=== PATIENT | female | born 1960 | race American Indian/Alaskan Native ===

== ENCOUNTER 2017-10-06 11:04 | Inpatient (IN) | payer MEDICARE ==
[2017-10-06] MEDS ORDERED: Albuterol-Ipratrop 3 mg / 0.5 (3 ml) UD INH STA (11:51)
[2017-10-06] MEDS ORDERED: Albuterol-Ipratrop 3 mg / 0.5 (3 ml) UD ONE ×5 (12:00→21:11)
[2017-10-06] MEDS ORDERED: Magnesium Sulfate 1 gm in D5W 1 GM/100 ML BAG IVPB ONE ×2 (12:00→12:24)
[2017-10-06] MEDS: Magnesium Sulfate 1 gm in D5W 1 GM/100 ML BAG IVPB SCH ×2 (12:19→12:31)
[2017-10-06 12:21] LABS: BASO # 0.1 K/uL (0.0-0.2); BASO % 0.7 % (0.0-2.0); EOS % 0.4 % (0.0-4.0); HEMOGLOBIN 12.8 g/dL (11.0-16.0); LYMPH # 2.1 K/uL (1.0-4.3); LYMPH % 15.5 % (20.0-40.0); MEAN CORPUSCULAR HGB CONC 32.6 g/dL (33.0-37.0); MONO # 0.6 K/uL (0.0-0.8); MONO % 4.1 % (0.0-10.0); NEUT # 10.7 K/uL (1.8-7.0); NEUT % 79.3 % (50.0-75.0); RBC 4.94 Mil/uL (3.80-5.20); RED CELL DISTRIBUTION WIDTH 19.1 % (11.5-14.5); WHITE BLOOD COUNT 13.5 K/uL (4.8-10.8)
[2017-10-06 12:27] LABS: MEAN CELL VOLUME 79.9 fL (81.0-99.0)
[2017-10-06 12:37] LABS: ALB/GLOB RATIO 1.2 (1.0-2.1); ALBUMIN 3.9 g/dL (3.5-5.0); ALT/SGPT 18 U/L (9-52); AST/SGOT 23 U/L (14-36); BLOOD UREA NITROGEN 34 mg/dL (7-17); CALCIUM 8.6 mg/dl (8.6-10.4); GFR AFRICAN-AMERICAN > 60; GFR NON-AFRICAN AMERICAN 51
[2017-10-06 12:45] LABS: B-TYPE NATRIURETIC PEPTIDE 464 pg/mL (0-900)
--- NOTE | 2017-10-06 14:02 | RAD ---
Chest x-ray single frontal view History: Shortness of breath. Comparison: 08/12/2016 Findings: Moderate venous congestion with bibasilar airspace opacities and small bilateral pleural effusions. Cardiomegaly. Right hilar prominence. Degenerative changes in the spine and shoulders. Impression: Moderate venous congestion with bibasilar airspace opacities and small bilateral pleural effusions. Cardiomegaly. Right hilar prominence.
--- NOTE | 2017-10-06 14:21 | CP.PCM.HP ---
<LuzmariaViridiana - Last Filed: 10/07/17 07:10> History of Present Illness - History of Present Illness History of Present Illness: CC: COPD exacerbation Pt is a 57 y/o woman with a PMH of asthma, COPD, CHF, HTN, sleep apnea, AL (2003 ), hyperthyroidism, GERD and arthritis who presented to the ED due to 2-3 week history of worsening SOB and cough productive of yellow sputum. Her difficulty breathing has become so severe that she is unable to walk from her bedroom to her bathroom without becoming uncomfortable and out of breath. She reports that she has been taking her home medications as prescribed. She doesn't think her medications have been changed recently. She states that her grandson was sick recently ("had a cough") but that her current episode began before that. She was hospitalized at [facility] in early August for the same reason and states that this episode feels similar to the one prior. She endorses CP that comes on with coughing, headache, fatigue and congestion. She denies fevers, chills, palpitations, N/V/C/D, sinus pain and leg swelling. Pmhx: Asthma, COPD, CHF, HTN, AL ('), Hyperthyroidism, Sleep Apnea, GERD, Arthritis Pshx: Myomectomy and (1); hysterectomy Family hx: Mom has Diabetes and HTN and is still living. Dad had Diabetes, HTN and CKD () Social hx: Resumed smoking several months ago, after quiting for 6mo. 1/2PPD x 21yrs; Drinks beer on occasion; Denies substance use Allergies: Pt reports an IV antibiotic allergy; however, does no recall the name and previous records doesn't have information either PMD: Dr. Aileen Baig: Dr. Carreno Present on Admission - Present on Admission Any Indicators Present on Admission: No History of DVT/PE: No History of Uncontrolled Diabetes: No Urinary Catheter: No Decubitus Ulcer Present: No Past Patient History - Infectious Disease Hx of Infectious Diseases: None - Tetanus Immunizations Tetanus Immunization: Unknown - Past Medical History & Family History Past Medical History?: Yes - Past Social History Smoking Status: Heavy Smoker > 10 Cigarettes Daily - CARDIAC Hx Cardiac Disorders: Yes Hx Congestive Heart Failure: Yes Hx Heart Attack: Yes Hx Hypertension: Yes - PULMONARY Hx Respiratory Disorders: Yes Hx Chronic Obstructive Pulmonary Disease (COPD): Yes Hx Sleep Apnea: Yes - NEUROLOGICAL Hx Neurological Disorder: No - HEENT Hx HEENT Problems: No - RENAL Hx Chronic Kidney Disease: No - ENDOCRINE/METABOLIC Hx Endocrine Disorders: Yes Hx Hypothyroidism: Yes - HEMATOLOGICAL/ONCOLOGICAL Hx Blood Disorders: No - INTEGUMENTARY Hx Dermatological Problems: No - MUSCULOSKELETAL/RHEUMATOLOGICAL Hx Musculoskeletal Disorders: Yes Hx Arthritis: Yes - GASTROINTESTINAL Hx Crohn's Disease: Yes - GENITOURINARY/GYNECOLOGICAL Hx Genitourinary Disorders: No - PSYCHIATRIC Hx Substance Use: No - SURGICAL HISTORY Hx Surgeries: Yes Hx Cardiac Catheterization: Yes Hx Section: Yes - ANESTHESIA Hx Anesthesia: Yes Hx Anesthesia Reactions: No Hx Malignant Hyperthermia: No Meds Allergies/Adverse Reactions: Allergies Allergy/AdvReac Type Severity Reaction Status Date / Time iv antibiotic last admission. Allergy Uncoded 08/09/16 12:44 Results - Vital Signs Recent Vital Signs: Last Vital Signs Temp 98 F 10/06/17 11:18 Pulse 101 H 10/06/17 13:54 Resp 17 10/06/17 13:54 BP 156/88 H 10/06/17 13:54 Pulse Ox 97 10/06/17 13:54 - Labs Result Diagrams: 10/06/17 12:17 10/06/17 12:17 Labs: Laboratory Results - last 24 hr 10/06/17 10/06/17 10/06/17 11:50 12:17 12:17 WBC 13.5 H RBC 4.94 Hgb 12.8 Hct 39.4 MCV 79.9 L D MCH 26.0 L MCHC 32.6 L RDW 19.1 H Plt Count 316 MPV 8.0 Neut % (Auto) 79.3 H Lymph % (Auto) 15.5 L [place] % (Auto) 4.1 Eos % (Auto) 0.4 Baso % (Auto) 0.7 Neut # (Auto) 10.7 H Lymph # (Auto) 2.1 [place] # (Auto) 0.6 Eos # (Auto) 0.0 Baso # (Auto) 0.1 Sodium 144 Potassium 4.7 Chloride 109 H Carbon Dioxide 23 Anion Gap 16 BUN 34 H Creatinine 1.1 Est GFR ( Amer) > 60 Est GFR (Non-Af Amer) 51 Random Glucose 120 H Calcium 8.6 Total Bilirubin 0.5 AST 23 ALT 18 Alkaline Phosphatase 98 Troponin I 0.0190 NT-Pro-B Natriuret Pep 464 Total Protein 7.1 Albumin 3.9 Globulin 3.2 Albumin/Globulin Ratio 1.2 Influenza Typ A,B (EIA) Negative for flu a/b Assessment & Plan - Assessment and Plan (Free Text) Assessment: COPD Exacerbation CXR: Moderate venous congestion with bibasilar airspace opacities and small bilateral pleural effusions. Cardiomegaly. Right hilar prominence. Continues to have BL wheezing, more audible on Right side CPAP for night time use Pulm (Dr Carreno) consulted CPAP 8cmH2O at night (8pm to 8am) Duoneb 3 ml IH RQ4 [facility] Solu-Medrol 60 mg IVP Q6 [facility] Roflumilast 500 mcg PO DAILY [facility] Advair Diskus 500/50 1 puff INH RBID [facility] CXR- 08/12/16- Pulmonary venous congestion. Mild right basilar atelectasis or infiltrate. Cardiomegaly. Patient continues to be SOB, patient is morbidly obese. She continues to be SOB at rest and worse during ambulation. Chest pain - ruled out ACS Myocardial infarction vs Chostochondritis Hx of AL 2003 Patient with pmx GERD: protonix Chest pain associated with coughing KRYSTINA neg x3 Aspirin 81 mg PO DAILY [facility] Hypertension HTN on admission. Resumed home meds Verapamil HCl 240 mg PO DAILY [facility] Hydralazine 50 mg PO TID [facility] (/) Hydrochlorothiazide 25mg PO QD Hyperthyroidism Methimazole 10 mg PO BID TSH - low < 0.02 GERD (gastroesophageal reflux disease) Continue home med: Protonix 40mg PO daily Monitor Prophylactic measure Heparin 5000 units SC Q8 Protonix 40mg PO daily SCD's c/i Heart healthy diet DW Dr. Connors, Viridiana Eng DO PGY1 previous meds from last admission Tiotropium [place] 18 mcg IH RQD [facility] Furosemide 20 mg IVP DAILY [facility] Robitussin 100mg PO Q4H PRN - Date & Time Date: 10/07/17 Time: 07:10 <Darshan Connors - Last Filed: 10/07/17 07:26> Results - Vital Signs Recent Vital Signs: Last Vital Signs Temp 98.5 F 10/07/17 00:00 Pulse 115 H 10/07/17 00:00 Resp 20 10/07/17 00:00 BP 138/92 H 10/07/17 00:00 Pulse Ox 99 10/07/17 00:00 - Labs Result Diagrams: 10/06/17 12:17 10/06/17 12:17 Labs: Laboratory Results - last 24 hr 10/06/17 10/06/17 10/06/17 11:50 12:17 12:17 WBC 13.5 H RBC 4.94 Hgb 12.8 Hct 39.4 MCV 79.9 L D MCH 26.0 L MCHC 32.6 L RDW 19.1 H Plt Count 316 MPV 8.0 Neut % (Auto) 79.3 H Lymph % (Auto) 15.5 L [place] % (Auto) 4.1 Eos % (Auto) 0.4 Baso % (Auto) 0.7 Neut # (Auto) 10.7 H Lymph # (Auto) 2.1 [place] # (Auto) 0.6 Eos # (Auto) 0.0 Baso # (Auto) 0.1 Sodium 144 Potassium 4.7 Chloride 109 H Carbon Dioxide 23 Anion Gap 16 BUN 34 H Creatinine 1.1 Est GFR ( Amer) > 60 Est GFR (Non-Af Amer) 51 Random Glucose 120 H Calcium 8.6 Total Bilirubin 0.5 AST 23 ALT 18 Alkaline Phosphatase 98 Troponin I 0.0190 NT-Pro-B Natriuret Pep 464 Total Protein 7.1 Albumin 3.9 Globulin 3.2 Albumin/Globulin Ratio 1.2 Influenza Typ A,B (EIA) Negative for flu a/b Attending/Attestation - Attestation I have personally seen and examined this patient.: Yes I have fully participated in the care of the patient.: Yes I have reviewed all pertinent clinical information: Yes Notes (Text): 10/07/17 07:20 Medical attending: Patient is known to hospitalist service from previous admission. Patient was seen and examined by me in the ER with patient and patient's family member. Reviewed above note by the director medical science and agree with the above note. This is a very nice woman who I remember from previous admission. On exam she has bilateral wheezing and has been reporting coughing and shortness of breath for at least one week now. She was reluctant to talk about smoking however per family she is unfortunately still is smoking, furthermore she explains to us she is still gaining some weight. She does see a basket hand braider whom we will try to notify. She will be placed on IV solumedrol as well as Advair while she is here. Along with Duo nebulizers. She explains to me she wants to go home the next day. However knowing her from previous admission it might take more than one day stay. thank you Darshan Connors
--- NOTE | 2017-10-06 15:19 | C.PDOC ---
History Of Present Illness 57 y/o female, presents to the ER complaining of increased SOB and dry cough over the past few weeks. Patient denies having fever,chills, chest pain, abdominal pain, nausea, and vomiting. Of note, patient has a history of COPD and she is taking her medications with mild relief. Chief Complaint (Nursing): Shortness Of Breath History Per: Patient History/Exam Limitations: no limitations Onset/Duration Of Symptoms: Days Current Symptoms Are (Timing): Still Present Severity: Moderate Past Medical History Reviewed: Historical Data, Nursing Documentation, Vital Signs Vital Signs: Last Vital Signs Temp 98.2 F 10/06/17 17:01 Pulse 108 H 10/06/17 17:01 Resp 22 10/06/17 17:01 BP 164/86 H 10/06/17 17:01 Pulse Ox 100 10/06/17 17:01 - Medical History PMH: Arthritis, Asthma, CHF, COPD, Crohn's Disease, Gastrointestinal Ulcer, HTN , Hyperthyroidism, Hypothyroidism, Pneumonia, Sleep Apnea Denies: Chronic Kidney Disease Surgical History: - [facility] Procedures ESOPHAGOGASTRODUODENOSCOPY [EGD] W/CLOSED BIOPSY (09/01/13) NON-INVASIVE MECHANICAL VENTILATION (08/18/13) VENOUS CATHETERIZATION NEC (09/01/13) Family History: States: No Known Family Hx - Social History Hx Tobacco Use: No Hx Alcohol Use: Yes Hx Substance Use: No - Immunization History Hx Tetanus Toxoid Vaccination: No Hx Influenza Vaccination: Yes Hx Pneumococcal Vaccination: Yes Review Of Systems Except As Marked, All Systems Reviewed And Found Negative. Constitutional: Negative for: Fever, Chills Cardiovascular: Negative for: Chest Pain Respiratory: Positive for: Cough (dry cough), Shortness of Breath Gastrointestinal: Negative for: Nausea, Vomiting, Abdominal Pain Physical Exam - Physical Exam Appears: Non-toxic, No Acute Distress, Other (obese) Skin: Normal Color, Warm Head: Atraumatic, Normacephalic Eye(s): bilateral: Normal Inspection Nose: Normal Oral Mucosa: Moist Throat: Normal, No Erythema, No Exudate Chest: Symmetrical Cardiovascular: Rhythm Regular Respiratory: No Rales, No Rhonchi, Wheezing (bilateral expiratory wheezing) Neurological/Psych: Oriented x3, Normal Speech ED Course And Treatment - Laboratory Results Result Diagrams: 10/06/17 12:17 04/02/18 12:17 ECG: Interpreted By Me, Viewed By Me ECG Rhythm: Sinus Rhythm Rate From EC O2 Sat by Pulse Oximetry: 97 (RA) Pulse Ox Interpretation: Normal - Other Rad CXR X-Ray: Viewed By Me, Read By Radiologist Interpretation: Chest x-ray single frontal view. History: Shortness of breath. Comparison: 08/12/2016. Findings: Moderate venous congestion with bibasilar airspace opacities and small bilateral pleural effusions. Cardiomegaly. Right hilar prominence. Degenerative changes in the spine and shoulders. Impression : Moderate venous congestion with bibasilar airspace opacities and small bilateral pleural effusions. Cardiomegaly. Right hilar prominence. Progress Note: Labs, ECG, and CXR ordered. Patient given Albuterol. On re- evaluation, patient is continuing wheezing and feeling SOB. Case discussed with Dr. Connors who will admit patient under his service. Disposition - Disposition Disposition Time: 14:00 Condition: STABLE - Clinical Impression Clinical Impression: COPD with exacerbation - Scribe Statement The provider has reviewed the documentation as recorded by the Pepe Cam Provider Attestation: All medical record entries made by the Alexibe were at my direction and personally dictated by me. I have reviewed the chart and agree that the record accurately reflects my personal performance of the history, physical exam, medical decision making, and the department course for this patient. I have also personally directed, reviewed, and agree with the discharge instructions and disposition.
[2017-10-06] MEDS: Albuterol-Ipratrop 3 mg / 0.5 (3 ml) UD INH SCH ×2 (15:49→21:09)
[2017-10-06] MEDS ORDERED: cefTRIAXone IV 1 gm in Dextros 50 ML IVPB ONE (16:11)
[2017-10-06] MEDS ORDERED: Pantoprazole 40 mg EC Tab PO ONE (16:11)
[2017-10-06] MEDS: Pantoprazole 40 mg EC Tab PO SCH (16:12)
[2017-10-06] MEDS: cefTRIAXone IV 1 gm in Dextros 50 ML IVPB SCH (16:12)
[2017-10-06] MEDS: MethylPREDNISolone 40 mg Vial IVP SCH (17:20)
[2017-10-06] MEDS: Fluticasone-Salmeterol 500-50mcg Diskus INH SCH (21:12)
[2017-10-07] MEDS: MethylPREDNISolone 40 mg Vial IVP SCH ×4 (00:19→19:27)
[2017-10-07] MEDS: Albuterol-Ipratrop 3 mg / 0.5 (3 ml) UD INH SCH ×6 (01:00→20:33)
--- NOTE | 2017-10-07 07:11 | CP.PCM.PN ---
<Viridiana Dutta - Last Filed: 10/07/17 14:05> Subjective - Date & Time of Evaluation Date of Evaluation: 10/07/17 Time of Evaluation: 07:14 - Subjective Subjective: Progress note for Dr. Connors patient seen and examined at bedside. Patient had a headache overnight and was given tylenol. Patient states she did not have cpap on last night because she came up to the floors late at night. No other events overnight. Patient states she's still coughing but feels better than yesterday. Patient admits to cough and wheezing. Denies fever, chills, chest pain, diarrhea, nausea, vomiting, abdominal pain. Objective - Vital Signs/Intake and Output Vital Signs (last 24 hours): Temp Pulse Resp BP Pulse Ox 98.5 F 115 H 20 138/92 H 99 10/07/17 00:00 10/07/17 00:00 10/07/17 00:00 10/07/17 00:00 10/07/17 00:00 - Medications Medications: Current Medications Albuterol/Ipratropium (Duoneb 3 Mg/0.5 Mg (3 Ml) Ud) 3 ml INH RQ4 [facility] Last Admin: 10/07/17 04:02 Dose: Not Given Heparin Sodium (Porcine) (Heparin) 5,000 units SC Q8 [facility] Last Admin: 10/07/17 06:03 Dose: 5,000 units Hydralazine HCl (Apresoline) 50 mg PO BID [facility] Last Admin: 10/06/17 17:20 Dose: 50 mg Hydrochlorothiazide (Hydrodiuril) 25 mg PO DAILY [facility] Ceftriaxone Sodium (Rocephin Iv 1 Gm Duplex) 50 mls @ 100 mls/hr IVPB Q24H [facility] PRN Reason: Protocol Last Admin: 10/06/17 16:12 Dose: 100 mls/hr Methimazole (Tapazole) 10 mg PO BID [facility] Last Admin: 10/06/17 17:20 Dose: 10 mg Methylprednisolone (Solu-Medrol) 40 mg IVP Q6 [facility] Stop: 10/09/17 18:01 Last Admin: 10/07/17 06:01 Dose: 40 mg Pantoprazole Sodium (Protonix Ec Tab) 40 mg PO DAILY [facility] Last Admin: 10/06/17 16:12 Dose: 40 mg Roflumilast (Daliresp) 500 mcg PO DAILY [facility] Last Admin: 10/06/17 16:31 Dose: 500 mcg Fluticasone/Salmeterol (Advair Diskus 500/50) 1 puff INH RQ12 [facility] Last Admin: 10/06/17 21:12 Dose: Not Given Verapamil HCl (Calan Sr Tab) 240 mg PO DAILY [facility] - Labs Labs: 10/06/17 12:17 10/06/17 12:17 - Constitutional Appears: Non-toxic, No Acute Distress - Head Exam Head Exam: ATRAUMATIC, NORMAL INSPECTION, NORMOCEPHALIC - Eye Exam Eye Exam: EOMI, Normal appearance Pupil Exam: NORMAL ACCOMODATION, PERRL - ENT Exam ENT Exam: Mucous Membranes Moist - Neck Exam Neck Exam: Full ROM - Respiratory Exam Respiratory Exam: Wheezes. absent: Accessory Muscle Use - Cardiovascular Exam Cardiovascular Exam: REGULAR RHYTHM, +S1, +S2. absent: Bradycardia, Tachycardia - GI/Abdominal Exam GI & Abdominal Exam: Soft. absent: Tenderness - Extremities Exam Extremities Exam: Full ROM. absent: Pedal Edema - Neurological Exam Neurological Exam: Alert, Awake, CN II-XII Intact, Oriented x3 - Psychiatric Exam Psychiatric exam: Normal Affect, Normal Mood - Skin Skin Exam: Dry, Intact, Normal Color, Warm Assessment and Plan - Assessment and Plan (Free Text) Assessment: COPD Exacerbation CXR: Moderate venous congestion with bibasilar airspace opacities and small bilateral pleural effusions. Cardiomegaly. Right hilar prominence. Continues to have BL wheezing, more audible on Right side CPAP for night time use Pulm (Dr Carreno) consulted CPAP 8cmH2O at night (8pm to 8am) Duoneb 3 ml IH RQ4 [facility] Solu-Medrol 60 mg IVP Q6 [facility] Roflumilast 500 mcg PO DAILY [facility] Advair Diskus 500/50 1 puff INH RBID [facility] CXR- 08/12/16- Pulmonary venous congestion. Mild right basilar atelectasis or infiltrate. Cardiomegaly. Patient continues to be SOB, patient is morbidly obese. She continues to be SOB at rest and worse during ambulation. Chest pain with coughing Hypertension HTN on admission. Resumed home meds Verapamil HCl 240 mg PO DAILY [facility] Hydralazine 50 mg PO TID [facility] (08/10) Hydrochlorothiazide 25mg PO QD Hyperthyroidism Methimazole 10 mg PO BID TSH - low < 0.02 GERD (gastroesophageal reflux disease) Continue home med: Protonix 40mg PO daily Monitor Prophylactic measure Heparin 5000 units SC Q8 Protonix 40mg PO daily SCDs Heart healthy diet DW Viridiana Paez DO PGY1 previous meds from last admission Tiotropium [place] 18 mcg IH RQD [facility] Furosemide 20 mg IVP DAILY [facility] Robitussin 100mg PO Q4H PRN <Darshan Connors H - Last Filed: 10/07/17 14:25> Objective - Vital Signs/Intake and Output Vital Signs (last 24 hours): Temp Pulse Resp BP Pulse Ox 98.2 F 108 H 21 145/82 98 10/07/17 07:50 10/07/17 07:50 10/07/17 07:50 10/07/17 07:50 10/07/17 07:50 Intake and Output: 10/07/17 10/07/17 06:59 18:59 Intake Total 700 Balance 700 - Medications Medications: Current Medications Albuterol/Ipratropium (Duoneb 3 Mg/0.5 Mg (3 Ml) Ud) 3 ml INH RQ4 [facility] Last Admin: 10/07/17 11:22 Dose: 3 ml Heparin Sodium (Porcine) (Heparin) 5,000 units SC Q8 [facility] Last Admin: 10/07/17 14:16 Dose: 5,000 units Hydralazine HCl (Apresoline) 50 mg PO BID [facility] Last Admin: 10/07/17 09:32 Dose: 50 mg Hydrochlorothiazide (Hydrodiuril) 25 mg PO DAILY [facility] Last Admin: 10/07/17 09:33 Dose: 25 mg Ceftriaxone Sodium (Rocephin Iv 1 Gm Duplex) 50 mls @ 100 mls/hr IVPB Q24H [facility] PRN Reason: Protocol Last Admin: 10/06/17 16:12 Dose: 100 mls/hr Methimazole (Tapazole) 10 mg PO BID [facility] Last Admin: 10/07/17 09:33 Dose: 10 mg Methylprednisolone (Solu-Medrol) 60 mg IVP Q6H [facility] Pantoprazole Sodium (Protonix Ec Tab) 40 mg PO DAILY [facility] Last Admin: 10/07/17 09:33 Dose: 40 mg Roflumilast (Daliresp) 500 mcg PO DAILY [facility] Last Admin: 10/07/17 09:33 Dose: 500 mcg Fluticasone/Salmeterol (Advair Diskus 500/50) 1 puff INH RQ12 [facility] Last Admin: 10/07/17 07:45 Dose: 1 puff Verapamil HCl ([place]an Sr Tab) 240 mg PO DAILY [facility] Last Admin: 10/07/17 09:32 Dose: 240 mg - Labs Labs: 10/07/17 14:10 10/07/17 07:07 PT 10.9 SECONDS (9.7-12.2) 10/07/17 07:07 INR 1.0 10/07/17 07:07 APTT 27 SECONDS (21-34) 10/07/17 07:07 Attending/Attestation - Attestation I have personally seen and examined this patient.: Yes I have fully participated in the care of the patient.: Yes I have reviewed all pertinent clinical information, including history, physical exam and plan: Yes Notes (Text): 10/07/17 14:25 Medical attending: Patient was seen and examined by me, the above note by the claim review medical director. The patient's family member was present in the room as well. The patient was okay with this We discussed with the patient today she said that she was feeling somewhat better than when she came in overnight. The family members present in the room also agreed with this as well this being said she still has bilateral wheezing on exam. Currently she remains on the 2 nebulizers, this Solu-Medrol IV every 6 hours, the Dalirest once a day, as well as Advair twice a day. Again we had a conversation about the patient's weight cane. She explained that she understands this is important to try to change her lifestyle. We also spoke to her about her ongoing some use of cigarettes. She says she's can try. The problem appears that there also other family members in the house who smoke as well and so it's difficult for her she says to quit smoking when other people are smoking as well. The patient tells me that there is smoking inside the house as well. I suggested to her that considering all her breathing situation stat want the immediate lifestyle modifications that she could do is to try to quit smoking herself as well as the family members do smoke outside of the house Received the patient does tomorrow and we'll consider discharging the patient potentially tomorrow however this will depend on how she's doing. thank you Darshan Connors
[2017-10-07 07:25] LABS: PROTHROMBIN TIME 10.9 SECONDS (9.7-12.2)
[2017-10-07 07:31] LABS: ALB/GLOB RATIO 1.2 (1.0-2.1); ALBUMIN 3.5 g/dL (3.5-5.0); CALCIUM 8.4 mg/dl (8.6-10.4)
[2017-10-07] MEDS: Fluticasone-Salmeterol 500-50mcg Diskus INH SCH ×2 (07:45→20:33)
[2017-10-07] MEDS: Verapamil 240 mg ER Tab PO SCH (09:32)
[2017-10-07] MEDS: Pantoprazole 40 mg EC Tab PO SCH (09:33)
[2017-10-07] MEDS ORDERED: Home Med 1 UNIT (Meloxicam [Meloxicam] 15 MG) PO SCH (10:00)
--- NOTE | 2017-10-07 11:30 | CARD ---
APPROVED REPORT EKG Measurement Heart [id number] <Conclusion> Normal sinus rhythm Possible Left atrial enlargement Septal infarct, age undetermined Abnormal ECG
--- NOTE | 2017-10-07 11:30 | CARD ---
APPROVED REPORT EKG Measurement Heart [id number] <Conclusion> Normal sinus rhythm Possible Left atrial enlargement Septal infarct, age undetermined Abnormal ECG
[2017-10-07 14:19] LABS: HEMOGLOBIN 12.2 g/dL (11.0-16.0); MEAN CELL VOLUME 80.5 fL (81.0-99.0); MEAN CORPUSCULAR HEMOGLOBIN 26.3 pg (27.0-31.0); MEAN CORPUSCULAR HGB CONC 32.6 g/dL (33.0-37.0); MEAN PLATELET VOLUME 8.6 fL (7.2-11.7); RBC 4.64 Mil/uL (3.80-5.20); RED CELL DISTRIBUTION WIDTH 19.2 % (11.5-14.5)
[2017-10-07 14:20] LABS: WHITE BLOOD COUNT 21.2 K/uL (4.8-10.8)
[2017-10-07] MEDS: cefTRIAXone IV 1 gm in Dextros 50 ML IVPB SCH (16:30)
--- NOTE | 2017-10-07 17:55 | CP.PCM.CON ---
History of Present Illness - History of Present Illness History of Present Illness: cough, sob, wheeze, discolored sputum, murphy for a few weeks unresponsive to usual home meds Review of Systems - Respiratory Respiratory: Cough, Dyspnea on Exertion, Wheezing, Excessive Mucous Production, Change in Mucous Color Past Patient History - Infectious Disease Hx of Infectious Diseases: None - Tetanus Immunizations Tetanus Immunization: Unknown - Past Medical History & Family History Past Medical History?: Yes - Past Social History Smoking Status: Heavy Smoker > 10 Cigarettes Daily - CARDIAC Hx Cardiac Disorders: Yes Hx Congestive Heart Failure: Yes Hx Hypertension: Yes - PULMONARY Hx Chronic Obstructive Pulmonary Disease (COPD): Yes - NEUROLOGICAL Hx Neurological Disorder: No - HEENT Hx HEENT Problems: No - RENAL Hx Chronic Kidney Disease: No - ENDOCRINE/METABOLIC Hx Hypothyroidism: Yes - HEMATOLOGICAL/ONCOLOGICAL Hx Blood Disorders: No - INTEGUMENTARY Hx Dermatological Problems: No - MUSCULOSKELETAL/RHEUMATOLOGICAL Hx Arthritis: Yes (BACK; KNEE) - GASTROINTESTINAL Hx Crohn's Disease: Yes - GENITOURINARY/GYNECOLOGICAL Hx Genitourinary Disorders: No - PSYCHIATRIC Hx Substance Use: No - SURGICAL HISTORY Hx Surgeries: Yes Hx Cardiac Catheterization: Yes Hx Section: Yes - ANESTHESIA Hx Anesthesia: Yes Hx Anesthesia Reactions: No Hx Malignant Hyperthermia: No Meds Allergies/Adverse Reactions: Allergies Allergy/AdvReac Type Severity Reaction Status Date / Time iv antibiotic last admission. Allergy Uncoded 08/09/16 12:44 - Medications Medications: Current Medications Albuterol/Ipratropium (Duoneb 3 Mg/0.5 Mg (3 Ml) Ud) 3 ml INH RQ4 [facility] Last Admin: 10/07/17 15:55 Dose: 3 ml Heparin Sodium (Porcine) (Heparin) 5,000 units SC Q8 [facility] Last Admin: 10/07/17 14:16 Dose: 5,000 units Hydralazine HCl (Apresoline) 50 mg PO BID [facility] Last Admin: 10/07/17 17:42 Dose: 50 mg Hydrochlorothiazide (Hydrodiuril) 25 mg PO DAILY [facility] Last Admin: 10/07/17 09:33 Dose: 25 mg Ceftriaxone Sodium (Rocephin Iv 1 Gm Duplex) 50 mls @ 100 mls/hr IVPB Q24H [facility] PRN Reason: Protocol Last Admin: 10/07/17 16:30 Dose: 100 mls/hr Methimazole (Tapazole) 10 mg PO BID [facility] Last Admin: 10/07/17 17:42 Dose: 10 mg Methylprednisolone (Solu-Medrol) 60 mg IVP Q6H [facility] Montelukast Sodium (Singulair) 4 mg PO DAILY [facility] Pantoprazole Sodium (Protonix Ec Tab) 40 mg PO DAILY [facility] Last Admin: 10/07/17 09:33 Dose: 40 mg Roflumilast (Daliresp) 500 mcg PO DAILY [facility] Last Admin: 10/07/17 09:33 Dose: 500 mcg Fluticasone/Salmeterol (Advair Diskus 500/50) 1 puff INH RQ12 [facility] Last Admin: 10/07/17 07:45 Dose: 1 puff Verapamil HCl (Calan Sr Tab) 240 mg PO DAILY [facility] Last Admin: 10/07/17 09:32 Dose: 240 mg Physical Exam - Constitutional Appears: No Acute Distress - Head Exam Head Exam: ATRAUMATIC, NORMOCEPHALIC - Eye Exam Eye Exam: Normal appearance Pupil Exam: NORMAL ACCOMODATION - ENT Exam ENT Exam: Mucous Membranes Moist - Respiratory Exam Respiratory Exam: Decreased Breath Sounds, Prolonged Expiratory Phase, Wheezes - Cardiovascular Exam Cardiovascular Exam: REGULAR RHYTHM, +S1, +S2 - GI/Abdominal Exam GI & Abdominal Exam: Normal Bowel Sounds - Rectal Exam Rectal Exam: Deferred - Neurological Exam Neurological exam: Alert, Oriented x3 - Psychiatric Exam Psychiatric exam: Normal Affect, Normal Mood - Skin Skin Exam: Intact Results - Vital Signs Recent Vital Signs: Last Vital Signs Temp 98.5 F 10/07/17 15:31 Pulse 102 H 10/07/17 16:07 Resp 20 10/07/17 15:31 BP 129/74 10/07/17 15:31 Pulse Ox 99 10/07/17 16:07 - Labs Result Diagrams: 10/07/17 14:10 10/07/17 07:07 Labs: Laboratory Results - last 24 hr 10/07/17 10/07/17 10/07/17 07:07 07:07 14:10 WBC 21.2 H D RBC 4.64 Hgb 12.2 Hct 37.4 MCV 80.5 L MCH 26.3 L MCHC 32.6 L RDW 19.2 H Plt Count 314 MPV 8.6 Differential Comment PT 10.9 INR 1.0 APTT 27 Sodium 144 Potassium 5.1 Chloride 109 H Carbon Dioxide 19 L Anion Gap 20 BUN 37 H Creatinine 1.3 H Est GFR ( Amer) 51 Est GFR (Non-Af Amer) 42 Random Glucose 216 H Calcium 8.4 L Magnesium 2.5 H Total Bilirubin 0.4 AST 19 ALT 17 Alkaline Phosphatase 80 Total Protein 6.6 Albumin 3.5 Globulin 3.0 Albumin/Globulin Ratio 1.2 Assessment & Plan (1) COPD with exacerbation Status: Acute Comment: agree with meds, CT Chest to eval right hilar area (2) LOWELL (obstructive sleep apnea) Status: Acute (3) Obesities, morbid Status: Chronic (4) Hypertension Status: Chronic
[2017-10-07] MEDS ORDERED: Fluticasone-Salmeterol 250-50mcg Diskus INH SCH (20:00)
[2017-10-08] MEDS: MethylPREDNISolone 40 mg Vial IVP SCH ×3 (00:39→14:00)
[2017-10-08] MEDS: Albuterol-Ipratrop 3 mg / 0.5 (3 ml) UD INH SCH ×5 (00:53→15:54)
--- NOTE | 2017-10-08 04:53 | CON ---
DATE: ENDOCRINOLOGY CONSULT LOCATION: Room 352. HISTORY OF PRESENT ILLNESS: This is a [id number] with known history of bronchial asthma, with COPD, presenting here with acute exacerbation of the same, and associated progressive shortness of breath, a nonproductive cough, and has been started on IV steroid therapy, and is also being referred now for endocrine evaluation because of known history of hyperthyroidism, on medical therapy, as given thereof. PAST MEDICAL HISTORY: History of Graves disease and hyperthyroidism, currently on Tapazole, given 10 mg b.i.d., history of Crohn's disease, peptic ulcer disease with previous admissions also for exacerbation of abdominal pain as noted, history of obstructive sleep apnea with underlying super morbid obesity, history of Graves disease with hyperthyroidism, and has been controlled on Tapazole given 10 mg b.i.d., history of osteoarthritis, and lower back pain, knee arthritis, and polyarthralgias. FAMILY HISTORY: Positive for hypertension and heart disease. No known thyroid endocrinopathy. SOCIAL HISTORY: The patient has a supportive family. No history of smoking, but admits to alcohol use. REVIEW OF SYSTEMS: As mentioned above admits to generalized body weakness with easy fatigability and tiredness and suboptimal energy level with bifrontal headaches. No chest pains, but admits to progressive shortness of breath, initially on exertion with increasing nonproductive cough and pleuritic chest pain. Her oral intake has been variable with dyspepsia and intermittent diarrhea and constipation. No recent alterations of urinary patterns otherwise. PHYSICAL EXAM: VITAL SIGNS: The patient is a morbidly obese female in no apparent distress with a blood pressure of 140/80; pulse of 70 beats per minute and regular; temperature 98; respirations 20; height is 4 feet 11 inches; weight is 250 pounds. HEENT: Head normocephalic. Eyes: Anicteric with pink conjunctivae. Funduscopy is not possible at this time. Ears, nose, and throat otherwise normal. NECK: Supple. There is evidence of nodular thyromegaly, which is firm and nontender with no overt thyroid bruits or any possible thyroid nodules. Thyroid gland is normal size. No carotid bruits or any cervical adenopathy. CARDIOPULMONARY: Adynamic precordium. S1 and S2 is rapid and regular. LUNGS: Shows scattered rhonchi. ABDOMEN: Obese, soft with positive bowel sounds. EXTREMITIES: No peripheral edema. Pulses are +2 bilaterally. LABORATORY DATA: Her chemistry showed BUN of 37, sodium 144, potassium 5.1, chloride 109, CO2 is 19, glucose is 216. Creatinine is 1.3. Her WBC is 21.2, hemoglobin is 12, hematocrit is 37, MCV 80, platelets 314. ASSESSMENT: This is a 57-year-old female with acute exacerbation of chronic obstructive pulmonary disease and underlying asthmatic bronchitis, currently on IV steroid therapy with hyperglycemic acceleration as expected from the underlying increased insulin resistance as noted thereof. She also has significant history of Graves disease with hyperthyroidism and underlying nodular goiter controlled on medical therapy as mentioned and remains clinically euthyroid at this time. Plan of management was discussed with the patient and the staff. We will continue her current medications with Tapazole given as 10 mg b.i.d., and we will obtain a comprehensive thyroid hormonal profile and adjust her dose regimen accordingly. We will also obtain a thyroid peroxidase antibody and a thyroid stimulating immunoglobulin to ascertain the underlying thyroid autoimmunity and degree of metabolic activity thereof. We will also obtain a hemoglobin A1c to screen for underlying glucose intolerance or prediabetes and also include a lipid panel thereof. We will obtain a dietary evaluation for nutritional counseling and weight loss efforts with healthier food choices thereof. We will follow and advise accordingly. Ting Arango MD
--- NOTE | 2017-10-08 06:30 | CP.PCM.PN ---
Subjective - Date & Time of Evaluation Date of Evaluation: 10/08/17 Time of Evaluation: 06:30 - Subjective Subjective: Progress Note for Dr. Connors Patient seen and examined at bedside. No acute events overnight. Patient refused CTA chest which was ordered by Pulmonology consult. Patient does not like tight spaces. Patient also refused bipap overnight per nursing notes. will follow up with patient and encourage CPAP use. Objective - Vital Signs/Intake and Output Vital Signs (last 24 hours): Temp Pulse Resp BP Pulse Ox 97.8 F 100 H 20 144/77 98 10/08/17 00:00 10/08/17 00:00 10/08/17 00:00 10/08/17 00:00 10/08/17 00:00 Intake and Output: 10/07/17 10/08/17 18:59 06:59 Intake Total 700 Balance 700 - Medications Medications: Current Medications Albuterol/Ipratropium (Duoneb 3 Mg/0.5 Mg (3 Ml) Ud) 3 ml INH RQ4 [facility] Last Admin: 10/08/17 04:18 Dose: Not Given Heparin Sodium (Porcine) (Heparin) 5,000 units SC Q8 [facility] Last Admin: 10/08/17 05:40 Dose: 5,000 units Hydralazine HCl (Apresoline) 50 mg PO BID [facility] Last Admin: 10/07/17 17:42 Dose: 50 mg Hydrochlorothiazide (Hydrodiuril) 25 mg PO DAILY [facility] Last Admin: 10/07/17 09:33 Dose: 25 mg Ceftriaxone Sodium (Rocephin Iv 1 Gm Duplex) 50 mls @ 100 mls/hr IVPB Q24H [facility] PRN Reason: Protocol Last Admin: 10/07/17 16:30 Dose: 100 mls/hr Methimazole (Tapazole) 10 mg PO BID [facility] Last Admin: 10/07/17 17:42 Dose: 10 mg Methylprednisolone (Solu-Medrol) 60 mg IVP Q6H [facility] Last Admin: 10/08/17 06:00 Dose: 60 mg Montelukast Sodium (Singulair) 4 mg PO DAILY [facility] Pantoprazole Sodium (Protonix Ec Tab) 40 mg PO DAILY [facility] Last Admin: 10/07/17 09:33 Dose: 40 mg Roflumilast (Daliresp) 500 mcg PO DAILY [facility] Last Admin: 10/07/17 09:33 Dose: 500 mcg Fluticasone/Salmeterol (Advair Diskus 500/50) 1 puff INH RQ12 [facility] Last Admin: 10/07/17 20:33 Dose: 1 puff Verapamil HCl (Calan Sr Tab) 240 mg PO DAILY [facility] Last Admin: 10/07/17 09:32 Dose: 240 mg - Labs Labs: 10/07/17 14:10 10/07/17 07:07 PT 10.9 SECONDS (9.7-12.2) 10/07/17 07:07 INR 1.0 10/07/17 07:07 APTT 27 SECONDS (21-34) 10/07/17 07:07 - Constitutional Appears: No Acute Distress - Head Exam Head Exam: ATRAUMATIC, NORMAL INSPECTION, NORMOCEPHALIC - Eye Exam Eye Exam: EOMI, Normal appearance Pupil Exam: NORMAL ACCOMODATION, PERRL - ENT Exam ENT Exam: Mucous Membranes Moist, Normal Exam - Neck Exam Neck Exam: Full ROM, Normal Inspection - Respiratory Exam Respiratory Exam: Wheezes, NORMAL BREATHING PATTERN. absent: Accessory Muscle Use, Rales - Cardiovascular Exam Cardiovascular Exam: Tachycardia, REGULAR RHYTHM, +S1, +S2 - GI/Abdominal Exam GI & Abdominal Exam: Soft, Normal Bowel Sounds. absent: Tenderness - Extremities Exam Extremities Exam: Full ROM, Normal Capillary Refill, Normal Inspection. absent : Pedal Edema - Neurological Exam Neurological Exam: Alert, Awake, CN II-XII Intact, Oriented x3 - Psychiatric Exam Psychiatric exam: Normal Affect, Normal Mood - Skin Skin Exam: Dry, Intact, Normal Color, Warm Assessment and Plan - Assessment and Plan (Free Text) Assessment: COPD Exacerbation CXR: Moderate venous congestion with bibasilar airspace opacities and small bilateral pleural effusions. Cardiomegaly. Right hilar prominence. Continues to have BL wheezing, more audible on Right side CPAP for night time use Pulm (Dr Carreno) consulted: wanted CT chest for further evaluation of right hilar prominence. / overnight, patient refused the test CPAP 8cmH2O at night (8pm to 8am) Duoneb 3 ml IH RQ4 [facility] Solu-Medrol 60 mg IVP Q6 [facility] Roflumilast 500 mcg PO DAILY [facility] Advair Diskus 500/50 1 puff INH RBID [facility] CXR- 08/12/16- Pulmonary venous congestion. Mild right basilar atelectasis or infiltrate. Cardiomegaly. Patient continues to be SOB, patient is morbidly obese. She continues to be SOB at rest and worse during ambulation. Chest pain with coughing Hypertension HTN on admission. Resumed home meds Verapamil HCl 240 mg PO DAILY [facility] Hydralazine 50 mg PO TID [facility] (08/10) Hydrochlorothiazide 25mg PO QD Hyperthyroidism Methimazole 10 mg PO BID TSH - low < 0.02 hemoglobin A1c 6.1, diabetic GERD (gastroesophageal reflux disease) Continue home med: Protonix 40mg PO daily Monitor Prophylactic measure Heparin 5000 units SC Q8 Protonix 40mg PO daily [facility] Heart healthy diet DW Dr. Connors, Viridiana Dutta DO PGY1 previous additional meds from last admission Tiotropium Minetto 18 mcg IH RQD [facility] Furosemide 20 mg IVP DAILY [facility] Robitussin 100mg PO Q4H [facility]
[2017-10-08 07:27] LABS: HEMOGLOBIN 12.6 g/dL (11.0-16.0); MEAN CELL VOLUME 79.8 fL (81.0-99.0); MEAN CORPUSCULAR HEMOGLOBIN 26.5 pg (27.0-31.0); MEAN CORPUSCULAR HGB CONC 33.2 g/dL (33.0-37.0); MEAN PLATELET VOLUME 8.4 fL (7.2-11.7); RBC 4.74 Mil/uL (3.80-5.20); RED CELL DISTRIBUTION WIDTH 19.6 % (11.5-14.5)
[2017-10-08 07:46] LABS: ALB/GLOB RATIO 1.2 (1.0-2.1); ALBUMIN 3.6 g/dL (3.5-5.0); ALT/SGPT 14 U/L (9-52); AST/SGOT 17 U/L (14-36); BLOOD UREA NITROGEN 48 mg/dL (7-17); CALCIUM 8.4 mg/dl (8.6-10.4); GFR AFRICAN-AMERICAN 43; GFR NON-AFRICAN AMERICAN 36; HDL CHOLESTEROL 96 mg/dL (30-70)
[2017-10-08 08:07] LABS: LDL CHOLESTEROL 78 mg/dL (0-129)
[2017-10-08 08:15] LABS: T4 10.7 ug/dL (5.5-11.0)
[2017-10-08] MEDS: Fluticasone-Salmeterol 500-50mcg Diskus INH SCH (09:55)
[2017-10-08] MEDS: Pantoprazole 40 mg EC Tab PO SCH (10:55)
[2017-10-08] MEDS: Verapamil 240 mg ER Tab PO SCH (10:57)
[2017-10-08] MEDS ORDERED: Sodium Chloride 0.9% 1,000 ML IV SCH (11:00)
--- NOTE | 2017-10-08 13:58 | CP.PCM.DIS ---
<Viridiana Dutta - Last Filed: 10/08/17 17:02> Provider - Provider Date of Admission: 10/06/17 14:12 Attending physician: Darshan Connors DO Consults: Dr. Carreno Time Spent in preparation of Discharge (in minutes): 35 Diagnosis - Discharge Diagnosis (1) COPD with exacerbation Status: Acute Comment: improving Hospital Course - Lab Results Lab Results: Micro Results 10/06/17 16:15 Blood Blood Culture - Preliminary NO GROWTH AFTER 24 HOURS 10/06/17 16:15 Blood Blood Culture - Preliminary NO GROWTH AFTER 24 HOURS Most Recent Lab Values WBC 19.0 K/uL (4.8-10.8) H 10/08/17 07:19 RBC 4.74 Mil/uL (3.80-5.20) 10/08/17 07:19 Hgb 12.6 g/dL (11.0-16.0) 10/08/17 07:19 Hct 37.9 % (34.0-47.0) 10/08/17 07:19 MCV 79.8 fL (81.0-99.0) L 10/08/17 07:19 MCH 26.5 pg (27.0-31.0) L 10/08/17 07:19 MCHC 33.2 g/dL (33.0-37.0) 10/08/17 07:19 RDW 19.6 % (11.5-14.5) H 10/08/17 07:19 Plt Count 296 K/uL (130-400) 10/08/17 07:19 MPV 8.4 fL (7.2-11.7) 10/08/17 07:19 Neut % (Auto) 79.3 % (50.0-75.0) H 10/06/17 12:17 Lymph % (Auto) 15.5 % (20.0-40.0) L 10/06/17 12:17 [place] % (Auto) 4.1 % (0.0-10.0) 10/06/17 12:17 Eos % (Auto) 0.4 % (0.0-4.0) 10/06/17 12:17 Baso % (Auto) 0.7 % (0.0-2.0) 10/06/17 12:17 Neut # (Auto) 10.7 K/uL (1.8-7.0) H 10/06/17 12:17 Lymph # (Auto) 2.1 K/uL (1.0-4.3) 10/06/17 12:17 [place] # (Auto) 0.6 K/uL (0.0-0.8) 10/06/17 12:17 Eos # (Auto) 0.0 K/uL (0.0-0.7) 10/06/17 12:17 Baso # (Auto) 0.1 K/uL (0.0-0.2) 10/06/17 12:17 Differential Comment 10/07/17 14:10 PT 10.9 SECONDS (9.7-12.2) 10/07/17 07:07 INR 1.0 10/07/17 07:07 APTT 27 SECONDS (21-34) 10/07/17 07:07 Sodium 143 mmol/L (132-148) 10/08/17 07:19 Potassium 5.1 mmol/L (3.6-5.2) 10/08/17 07:19 Chloride 106 mmol/L (98-107) 10/08/17 07:19 Carbon Dioxide 20 mmol/L (22-30) L 10/08/17 07:19 Anion Gap 22 (10-20) H 10/08/17 07:19 BUN 48 mg/dL (7-17) H 10/08/17 07:19 Creatinine 1.5 mg/dL (0.7-1.2) H 10/08/17 07:19 Est GFR ( Amer) 43 10/08/17 07:19 Est GFR (Non-Af Amer) 36 10/08/17 07:19 Random Glucose 232 mg/dL (65-105) H 10/08/17 07:19 Hemoglobin A1c 6.1 % (4.2-6.5) 10/08/17 07:19 Calcium 8.4 mg/dl (8.6-10.4) L 10/08/17 07:19 Magnesium 2.3 mg/dL (1.6-2.3) 10/08/17 07:19 Total Bilirubin 0.3 mg/dL (0.2-1.3) 10/08/17 07:19 AST 17 U/L (14-36) 10/08/17 07:19 ALT 14 U/L (9-52) 10/08/17 07:19 Alkaline Phosphatase 85 U/L (38-126) 10/08/17 07:19 Troponin I 0.0190 ng/mL (0.00-0.120) 10/06/17 12:17 NT-Pro-B Natriuret Pep 464 pg/mL (0-900) 10/06/17 12:17 Total Protein 6.7 g/dL (6.3-8.3) 10/08/17 07:19 Albumin 3.6 g/dL (3.5-5.0) 10/08/17 07:19 Globulin 3.1 gm/dL (2.2-3.9) 10/08/17 07:19 Albumin/Globulin Ratio 1.2 (1.0-2.1) 10/08/17 07:19 Triglycerides 124 mg/dL (0-149) D 10/08/17 07:19 Cholesterol 190 mg/dL (0-199) 10/08/17 07:19 LDL Cholesterol Direct 78 mg/dL (0-129) 10/08/17 07:19 HDL Cholesterol 96 mg/dL (30-70) H 10/08/17 07:19 Free T4 1.86 ng/dL (0.78-2.19) 10/08/17 07:19 Thyroxine (T4) 10.7 ug/dL (5.5-11.0) 10/08/17 07:19 TSH 3rd Generation < 0.02 mIU/L (0.46-4.68) L 10/08/17 07:19 Influenza Typ A,B (EIA) Negative for flu a/b (NEGATIVE) 10/06/17 11:50 - Hospital Course Hospital Course: HPI Pt is a 57 y/o woman with a PMH of asthma, COPD, CHF, HTN, sleep apnea, NM (2003 ), hyperthyroidism, GERD and arthritis who presented to the ED due to 2-3 week history of worsening SOB and cough productive of yellow sputum. Her difficulty breathing has become so severe that she is unable to walk from her bedroom to her bathroom without becoming uncomfortable and out of breath. She reports that she has been taking her home medications as prescribed. She doesn't think her medications have been changed recently. She states that her grandson was sick recently ("had a cough") but that her current episode began before that. She was hospitalized at [facility] in early August for the same reason and states that this episode feels similar to the one prior. She endorses CP that comes on with coughing, headache, fatigue and congestion. She denies fevers, chills, palpitations, N/V/C/D, sinus pain and leg swelling. Patient states that she has not had cpap for 5 years because she lost it but needs cpap machine. Hospital Course CPAP was ordered for patient but patient refused to use it overnight. Patient was given antibiotics, duonebs, solumedrol during her stay. Chest xray showed right hilar prominence and venous congestion. Patient remained afebrile. Patient seen and examined at bedside. No acute events overnight. Patient refused CTA chest which was ordered by Pulmonology consult. Patient does not like tight spaces. Patient also refused bipap overnight per nursing notes. will follow up with patient and encourage CPAP use. 10/[address] chest to evaluate chest xray findings and patient refused stating she gets nervous with CT scans. Dr. Carreno saw the patient 10/07 in afternoon and ordered CT chest to further evaluate right hilar prominence found on CXR. Patient refused CT chest. Patient was discharged and told to follow up with Dr. Ferrell and Dr. Carreno for CPAP studies, prescription for new CPAP, further workup of copd , treatment as necessary. Patient encouraged to quit smoking. This is a brief summary of patient's stay in the hospital Please refer to EMR for further information Patient discharged with medication Albuterol Sonia Kunz continued home medication of flexeril, hydrochlorothiazide 25mg PO QD, meloxicam 15mg PO QD, methimazole 10 mg PO BID, Roflumilast 500mcg PO QD, verapamil 240mg PO QD, and Breo, Mucinex LA 600mg PO BID - Date & Time of H&P Date of H&P: 10/08/17 Time of H&P: 14:03 Discharge Exam - Additional Findings Additional findings: Constitutional Appears: Non-toxic, No Acute Distress - Head Exam Head Exam: ATRAUMATIC, NORMAL INSPECTION, NORMOCEPHALIC - Eye Exam Eye Exam: EOMI, Normal appearance Pupil Exam: NORMAL ACCOMODATION, PERRL - ENT Exam ENT Exam: Mucous Membranes Moist - Neck Exam Neck Exam: Full ROM - Respiratory Exam Respiratory Exam: minor Wheezes. absent: Accessory Muscle Use - Cardiovascular Exam Cardiovascular Exam: REGULAR RHYTHM, +S1, +S2. absent: Bradycardia, Tachycardia - GI/Abdominal Exam GI & Abdominal Exam: Soft. absent: Tenderness - Extremities Exam Extremities Exam: Full ROM. absent: Pedal Edema - Neurological Exam Neurological Exam: Alert, Awake, CN II-XII Intact, Oriented x3 - Psychiatric Exam Psychiatric exam: Normal Affect, Normal Mood - Skin Skin Exam: Dry, Intact, Normal Color, Warm Discharge Plan - Discharge Medications Prescriptions: Albuterol HFA [Ventolin HFA 90 mcg/actuation (8 g)] 2 puff IH PRN PRN #1 inhaler PRN Reason: Shortness Of Breath Benzonatate [Tessalon Perles] 100 mg PO DAILY 7 Days sgl Fluticasone/Salmeterol 500/50 [Advair Diskus 500/50] 1 puff INH RQ12 #1 puff Fluticasone/Vilanterol [Breo Ellipta 100-25 Mcg INH] 1 each IH DAILY #1 blst.w.dev guaiFENesin [Mucinex LA] 600 mg PO Q12 7 Days tab - Follow Up Plan Condition: STABLE Disposition: HOME/ ROUTINE Instructions: COPD Including Emphysema (DC), Albuterol, Benzonatate, Fluticasone and Vilanterol, Fluticasone and Salmeterol, Guaifenesin Additional Instructions: follow up with Dr. Arango outpatient for further management of hyperthyroid medication follow [facility] Dr. Ferrell for referral for sleep studies to readjust cpap settings and to get prescription for CPAP follow up wit Dr. Carreno for further management of COPD and CXR findings of right hilar prominence Referrals: Jeremiah Gallagher [Staff Provider] - Ting Arango MD [Medical Doctor] - Danie Carreno MD [Staff Provider] - <Darshan Connors - Last Filed: 10/08/17 17:15> Provider - Provider Date of Admission: 10/06/17 14:12 Attending physician: Darshan Connors DO Hospital Course - Lab Results Lab Results: Micro Results 10/06/17 16:15 Blood Blood Culture - Preliminary NO GROWTH AFTER 48 HOURS 10/06/17 16:15 Blood Blood Culture - Preliminary NO GROWTH AFTER 48 HOURS Most Recent Lab Values WBC 19.0 K/uL (4.8-10.8) H 10/08/17 07:19 RBC 4.74 Mil/uL (3.80-5.20) 10/08/17 07:19 Hgb 12.6 g/dL (11.0-16.0) 10/08/17 07:19 Hct 37.9 % (34.0-47.0) 10/08/17 07:19 MCV 79.8 fL (81.0-99.0) L 10/08/17 07:19 MCH 26.5 pg (27.0-31.0) L 10/08/17 07:19 MCHC 33.2 g/dL (33.0-37.0) 10/08/17 07:19 RDW 19.6 % (11.5-14.5) H 10/08/17 07:19 Plt Count 296 K/uL (130-400) 10/08/17 07:19 MPV 8.4 fL (7.2-11.7) 10/08/17 07:19 Neut % (Auto) 79.3 % (50.0-75.0) H 10/06/17 12:17 Lymph % (Auto) 15.5 % (20.0-40.0) L 10/06/17 12:17 [place] % (Auto) 4.1 % (0.0-10.0) 10/06/17 12:17 Eos % (Auto) 0.4 % (0.0-4.0) 10/06/17 12:17 Baso % (Auto) 0.7 % (0.0-2.0) 10/06/17 12:17 Neut # (Auto) 10.7 K/uL (1.8-7.0) H 10/06/17 12:17 Lymph # (Auto) 2.1 K/uL (1.0-4.3) 10/06/17 12:17 [place] # (Auto) 0.6 K/uL (0.0-0.8) 10/06/17 12:17 Eos # (Auto) 0.0 K/uL (0.0-0.7) 10/06/17 12:17 Baso # (Auto) 0.1 K/uL (0.0-0.2) 10/06/17 12:17 Differential Comment 10/07/17 14:10 PT 10.9 SECONDS (9.7-12.2) 10/07/17 07:07 INR 1.0 10/07/17 07:07 APTT 27 SECONDS (21-34) 10/07/17 07:07 Sodium 143 mmol/L (132-148) 10/08/17 07:19 Potassium 5.1 mmol/L (3.6-5.2) 10/08/17 07:19 Chloride 106 mmol/L (98-107) 10/08/17 07:19 Carbon Dioxide 20 mmol/L (22-30) L 10/08/17 07:19 Anion Gap 22 (10-20) H 10/08/17 07:19 BUN 48 mg/dL (7-17) H 10/08/17 07:19 Creatinine 1.5 mg/dL (0.7-1.2) H 10/08/17 07:19 Est GFR ( Amer) 43 10/08/17 07:19 Est GFR (Non-Af Amer) 36 10/08/17 07:19 Random Glucose 232 mg/dL (65-105) H 10/08/17 07:19 Hemoglobin A1c 6.1 % (4.2-6.5) 10/08/17 07:19 Calcium 8.4 mg/dl (8.6-10.4) L 10/08/17 07:19 Magnesium 2.3 mg/dL (1.6-2.3) 10/08/17 07:19 Total Bilirubin 0.3 mg/dL (0.2-1.3) 10/08/17 07:19 AST 17 U/L (14-36) 10/08/17 07:19 ALT 14 U/L (9-52) 10/08/17 07:19 Alkaline Phosphatase 85 U/L (38-126) 10/08/17 07:19 Troponin I 0.0190 ng/mL (0.00-0.120) 10/06/17 12:17 NT-Pro-B Natriuret Pep 464 pg/mL (0-900) 10/06/17 12:17 Total Protein 6.7 g/dL (6.3-8.3) 10/08/17 07:19 Albumin 3.6 g/dL (3.5-5.0) 10/08/17 07:19 Globulin 3.1 gm/dL (2.2-3.9) 10/08/17 07:19 Albumin/Globulin Ratio 1.2 (1.0-2.1) 10/08/17 07:19 Triglycerides 124 mg/dL (0-149) D 10/08/17 07:19 Cholesterol 190 mg/dL (0-199) 10/08/17 07:19 LDL Cholesterol Direct 78 mg/dL (0-129) 10/08/17 07:19 HDL Cholesterol 96 mg/dL (30-70) H 10/08/17 07:19 Free T4 1.86 ng/dL (0.78-2.19) 10/08/17 07:19 Thyroxine (T4) 10.7 ug/dL (5.5-11.0) 10/08/17 07:19 TSH 3rd Generation < 0.02 mIU/L (0.46-4.68) L 10/08/17 07:19 Influenza Typ A,B (EIA) Negative for flu a/b (NEGATIVE) 10/06/17 11:50 Attending/Attestation - Attestation I have personally seen and examined this patient.: Yes I have fully participated in the care of the patient.: Yes I have reviewed all pertinent clinical information, including history, physical exam and plan: Yes Notes (Text): 10/08/17 17:08 Medical attending: Patient was seen and examined by me. Agree with the above note by the resident The patient on exam was breathing much easier. On exam she did not have the wheezing that she previously had. For some reason she was upset and we discussed - she was brought down to the CT scan and she refused to undergo CT scan. I explained to her that if she did not want to undergo this then we understand. We again had a discussion about smoking - we explained that it is one modification she can readily do to improve her situation. Her smoking is complicated because there are other family members who smoke as well Also we disscussed her BMI/weight issues and patient was not enthusiastic about this. She will be sent with prescriptions of medications as mentioned above in the resident note I hope she will stop smoking, also she needs to follow up with her pulmologist as well. thank you Darshan Connors
--- NOTE | 2017-10-08 14:48 | RAD ---
HISTORY: sob COMPARISON: Chest radiograph dated 10/06/2017. FINDINGS: LUNGS: Prominence of the pulmonary vasculature may be secondary to AP technique and/or pulmonary vascular congestion. No focal consolidation. PLEURA: No significant pleural effusion identified, no pneumothorax apparent. CARDIOVASCULAR: Cardiomediastinal silhouette stably prominent. OSSEOUS STRUCTURES: Unchanged. VISUALIZED UPPER ABDOMEN: Normal. OTHER FINDINGS: None. IMPRESSION: Prominence of the pulmonary vasculature may be secondary to AP technique and/or pulmonary vascular congestion. No focal consolidation or pleural effusion.
[2017-10-08] MEDS: cefTRIAXone IV 1 gm in Dextros 50 ML IVPB SCH (16:15)
[2017-10-08 16:22] VITALS: BP 138/70; PULSE 88; RESP 21; TEMP 98; O2SAT 99
--- NOTE | 2017-10-08 17:21 | PCM.HF ---
Heart Failure Core Measure - Heart Failure Ejection Fraction: 40 % or Greater JOSE Inhibitor Prescribed: Yes Beta-Logan Prescribed: None Contraindication/Reason for not providing: COPD Angiotensin II Receptor Logan Prescribed: No Contraindication/Reason for not providing: on jose AnticoagulationTherapy for Atrial Fibrillation/Atrialflutter: No Contraindication/Reason for not providing: no afib Aldosterone Antagonist Prescribed: No Contraindication/Reason for not providing: EF >40% Hydralazine Nitrate Prescribed: Yes Implantable Cardioverter Defibrillator Therapy: No Contraindication/Reason for not providing: EF > 40% Cardiac Resynchronization Therapy Prescribed: No Contraindication/Reason for not providing: not indicated - Follow up Will be discharged to: Home Follow Up Date (must be within 7 days from discharge): 10/13/17 Follow Up Time: 09:00
--- NOTE | 2017-10-08 18:22 | PN ---
DATE: ENDO FOLLOWUP NOTE LOCATION: In room 352. SUBJECTIVE: This is a 57-year-old female admitted with acute exacerbation of COPD and asthmatic bronchitis, currently on IV steroid therapy and is now also being followed closely for metabolic management. She has significant history of hyperthyroidism and currently on medical therapy with Thioureas, using Tapazole medications as given. Her latest thyroid studies today shows a T4 of 10.7, with a free T4 of 1.86, and a TSH of less than 0.02. Her latest chemistries showed a BUN of 48, sodium 143, potassium 5.1, chloride 106, CO2 20, glucose 232, and creatinine 1.5. PLAN: So at this time, we will actually increase and titrate the Tapazole to 10 mg p.o. t.i.d. after meals, prescribed today as ordered. We will obtain thyroid antibodies that will confirm whether we are dealing with an active episode of thyroid autoimmunity at this time. We will obtain serial chemistries and supplement accordingly as needed. We will also obtain serial thyroid studies and titrate her dose regimen accordingly. We will follow. Ting Arango MD
[2017-10-08] MEDS ORDERED: guaiFENesin 600 mg ER Tab PO SCH (22:00)
== END 2017-10-08 17:54 | disposition home or self-care (01) | DRG 191 ==
LOC: C.ER 11:04 → C.9E 14:12 → C.3T 21:15
PROVIDERS: ADMIT Hospitalist; ATTEND Hospitalist
DX: J44.1 Chronic obstructive pulmonary disease with (acute) exacerbation (principal); K50.90 Crohn's disease, unspecified, without complications; Z68.43 Body mass index [BMI] 50.0-59.9, adult; I11.0 Hypertensive heart disease with heart failure; G47.33 Obstructive sleep apnea (adult) (pediatric); F17.200 Nicotine dependence, unspecified, uncomplicated; E66.01 Morbid (severe) obesity due to excess calories; E05.90 Thyrotoxicosis, unspecified without thyrotoxic crisis or storm; I50.9 Heart failure, unspecified; Z53.20 Procedure and treatment not carried out because of patient's decision for unspecified reasons; E03.9 Hypothyroidism, unspecified